=== PATIENT | male | born 1995 | race Caucasian/White ===

== ENCOUNTER → 2021-08-30 | Outpatient (CLI) | payer BC ==
[~2021-08-30] MED LIST: BENTYL10 MG PO; MOTRIN400 MG PO; Zofran4 MG PO
== END | disposition home or self-care (01) ==
LOC: COVID19 16:33
PROVIDERS: ATTEND Hospitalist
DX: U07.1 COVID-19 (principal)

== ENCOUNTER → 2023-04-20 | Outpatient (CLI) | payer BC ==
[2023-04-20 17:30] LABS: HEMATOCRIT 45.3 % (42.0-52.0); MEAN CELL VOLUME 83.9 fl (80.0-94.0); MEAN CORPUSCULAR HGB 28.3 pg (27.0-31.0); MEAN CORPUSCULAR HGB CONC 33.8 g/dl (33.0-37.0); RED BLOOD COUNT 5.4 10*6/uL (4.50-5.90); RED CELL DISTRI WIDTH 13.1 % (0-14.5); WHITE BLOOD COUNT 14.7 10*3/uL (4.8-10.8)
[2023-04-20 17:31] LABS: MEAN PLATELET VOLUME 10.8 fl (9.6-12.3)
[2023-04-20 17:55] LABS: ALKALINE PHOSPHATASE 84 U/L (46-116); BUN 14 mg/dl (9-23); CHLORIDE 105 mmol/L (98-107); CHOLESTEROL 150 mg/dL (<200); LDL CHOLESTEROL 97 mg/dL (9-159); POTASSIUM 3.8 mmol/L (3.4-5.1); SGPT/ALT 19 U/L (10-49); TOTAL PROTEIN 7.2 gm/dL (6.0-8.0); TRIGLYCERIDES 116 mg/dl (<150)
== END | disposition home or self-care (01) ==
LOC: LAB 17:14
PROVIDERS: ATTEND Family Medicine
DX: Z00.00 Encounter for general adult medical examination without abnormal findings (principal); Z13.220 Encounter for screening for lipoid disorders; Z71.6 Tobacco abuse counseling

== ENCOUNTER 2024-02-05 15:52 | Emergency (ER) | payer OTHER, BC ==
[~2024-02-05] VITALS: Ht 167.6 cm; Wt 63.5 kg
[2024-02-05 16:38] VITALS: BP 127/76
[2024-02-05] MEDS ORDERED: Tdap Vaccine 0.5 ML SYR (Adult Vaccine) IM ONE (19:35)
[2024-02-05] MEDS ORDERED: CEPHALEXIN500 M1 PO (19:57)
== END 2024-02-05 20:54 | disposition home or self-care (01) ==
LOC: ED 15:52
DX: S61.213A Laceration without foreign body of left middle finger without damage to nail, initial encounter (principal); W23.0XXA Caught, crushed, jammed, or pinched between moving objects, initial encounter; Y93.89 Activity, other specified; Y92.69 Other specified industrial and construction area as the place of occurrence of the external cause; Y99.0 Civilian activity done for income or pay

== ENCOUNTER 2024-03-28 18:55 | Emergency (ER) | payer SELFPAY ==
[~2024-03-28] VITALS: Ht 167.6 cm; Wt 63.5 kg
[~2024-03-28 18:55] MED LIST changes: +CEPHALEXIN500 M1 PO
[2024-03-28] MEDS ORDERED: Ketorolac Tromethamine 30 MG/ML VIAL IM ONE (22:40)
[2024-03-28] MEDS ORDERED: METHOCARBAMOL500 M1 PO (22:46)
[2024-03-28] MEDS ORDERED: NAPROSYN500 MG PO (22:46)
[2024-03-28 23:11] LABS: BILIRUBIN Negative (Negative); BLOOD 3+ (Negative); CLARITY Cloudy (Clear); COLOR Yellow (Yellow); GLUCOSE Negative (Negative); KETONE 1+ (Negative); LEUKO ESTERASE Negative (Negative); NITRITE Negative (Negative); PH 5.5 (4.5-8.0); SPECIFIC GRAVITY >= 1.030 (1.001-1.030)
[2024-03-29 00:10] LABS: RBC 41-50 rbc/hpf (0-2); WBC 0-2 wbc/hpf (0-5)
[2024-03-29 00:11] LABS: CALCIUM OXALATE CRYSTALS Trace
[2024-03-29 01:06] VITALS: BP 133/75
== END 2024-03-29 02:07 | disposition left against medical advice (07) ==
LOC: ED 18:55
PROVIDERS: Internal Medicine
DX: N13.2 Hydronephrosis with renal and ureteral calculous obstruction (principal); Z53.29 Procedure and treatment not carried out because of patient's decision for other reasons; Z98.890 Other specified postprocedural states